=== PATIENT | female | born 2000 | race Asian ===

== ENCOUNTER 2023-04-11 14:59 | Outpatient (CLI) | payer OTHER, SELFPAY | END 2023-04-11 15:00 | disposition home or self-care (01) | PROVIDERS: Visit Provider Registered Nurse | DX: F64.9 Gender identity disorder, unspecified (principal) | CPT/HCPCS: 80061; 82670; 84270; 84402; 84403; 84450; 84460 ==

== ENCOUNTER 2023-06-02 09:50 | Outpatient (CLI) | payer OTHER, SELFPAY | END 2023-06-02 09:51 | disposition home or self-care (01) | LOC: NFLDREF 09:53 | PROVIDERS: Visit Provider Registered Nurse | DX: F64.9 Gender identity disorder, unspecified (principal) | CPT/HCPCS: 84270; 84402; 84403 ==

== ENCOUNTER 2023-09-13 08:40 | Outpatient (CLI) | payer OTHER, SELFPAY | END 2023-09-13 08:41 | disposition home or self-care (01) | LOC: NFLDREF 09-15 11:59 | PROVIDERS: Visit Provider Registered Nurse | DX: F64.9 Gender identity disorder, unspecified (principal); D64.9 Anemia, unspecified | CPT/HCPCS: 84270; 84402; 84403 ==

== ENCOUNTER 2024-01-12 13:27 | Outpatient (CLI) | payer OTHER, SELFPAY | END 2024-01-12 13:28 | disposition home or self-care (01) | LOC: NFLDREF 13:28 | PROVIDERS: Visit Provider Registered Nurse | DX: F64.9 Gender identity disorder, unspecified (principal) | CPT/HCPCS: 84270; 84402; 84403 ==

== ENCOUNTER 2024-04-02 18:37 | Outpatient (CLI) | payer OTHER, SELFPAY | END 2024-04-02 18:38 | disposition home or self-care (01) | LOC: NFLDREF 18:38 | PROVIDERS: Visit Provider Registered Nurse | DX: F64.9 Gender identity disorder, unspecified (principal) | CPT/HCPCS: 84270; 84402; 84403 ==